=== PATIENT | male | born 1960 | race African-American/Black ===

== ENCOUNTER 2023-07-04 16:29 | Emergency (ER) | payer OTHER ==
[~2023-07-04] VITALS: Ht 167.6 cm; Wt 68.0 kg
[2023-07-04] MEDS ORDERED: MORPHINE SULFATE INJ 2 MG/ML DISP.SYRIN IV ONE (17:30)
[2023-07-04] MEDS ORDERED: ONDANSETRON HCL/PF 4 MG/2 ML VIAL IVP ONE (17:30)
[2023-07-04] MEDS ORDERED: IV NS 0.9% 1,000 ML BAG IV ONE (17:30)
[2023-07-04 17:43] LABS: BASOPHILS % (AUTO) 0.2 % (0.0-2.0); EOSINOPHILS # (AUTO) 0.1 K/uL (0.0-0.7); EOSINOPHILS % (AUTO) 3.1 % (0.0-6.0); HEMATOCRIT 38 % (39-51); HEMOGLOBIN 12.2 g/dL (13.5-17.5); LYMPHOCYTES # (AUTO) 0.6 K/uL (0.8-4.8); LYMPHOCYTES % (AUTO) 12.7 % (20.0-44.0); MEAN CORPUSCULAR HEMOGLOBIN 27 PG (26.0-33.0); MEAN CORPUSCULAR HGB CONC 32 g/dl (31.0-36.0); MEAN CORPUSCULAR VOLUME 83 fL (80-96); MONOCYTES # (AUTO) 0.4 K/uL (0.1-1.30); MONOCYTES % (AUTO) 9.5 % (2.0-12.0); NEUTROPHILS # (AUTO) 3.3 K/uL (1.8-8.9); NEUTROPHILS % (AUTO) 74.5 % (43.0-81.0); PLATELET COUNT (AUTO) 247 K/uL (150-450); RED BLOOD CELL COUNT(AUTO) 4.56 MIL/uL (4.5-6.0); RED CELL DISTRIBUTION WIDTH 15.2 % (11.5-15.0); WHITE BLOOD COUNT (AUTO) 4.4 K/uL (4.3-11.0)
[2023-07-04] MEDS ORDERED: ONDANSETRON HCL/PF 4 MG/2 ML VIAL ONE (17:52)
[2023-07-04] MEDS ORDERED: MORPHINE SULFATE INJ 4 MG/ML DISP.SYRIN ONE (17:52)
[2023-07-04 17:59] LABS: CALCIUM, SERUM 9.4 mg/dL (8.5-10.1); CREATININE 1.1 mg/dL (0.6-1.3); POTASSIUM 4.4 mmol/L (3.5-5.1)
[2023-07-04 18:05] LABS: ALBUMIN 3.5 g/dL (3.4-5.0); BILIRUBIN,DIRECT 0.1 mg/dL (0.0-0.2); BILIRUBIN,TOTAL 0.3 mg/dL (0.2-1.0); TOTAL PROTEIN, SERUM 7.1 g/dL (6.4-8.2)
[2023-07-04 18:09] LABS: INR 1.01 (0.91-1.10); PARTIAL THROMBOPLASTIN TIME 26.7 SEC (24.3-34.3); PROTHROMBIN TIME 10.7 SECS (9.2-11.1)
[2023-07-04] MEDS ORDERED: ONDA4TAB5 PO (19:42)
[2023-07-04] MEDS ORDERED: ACET-2605 PO (19:42)
[2023-07-04 19:56] VITALS: BP 122/88; TEMP 98; O2SAT 99
== END 2023-07-04 19:57 | disposition home or self-care (01) ==
LOC: ER 16:29
DX: R10.11 Right upper quadrant pain (principal); R10.12 Left upper quadrant pain; R11.2 Nausea with vomiting, unspecified; I10 Essential (primary) hypertension; Z79.899 Other long term (current) drug therapy; Z59.00 Homelessness unspecified
CPT/HCPCS: 99285; 96374; 76700; 71045; 96361; 96375; 93005; 85025; 80048; 83690; 80076; 36415; 84484; 85730; J2270; J2405